=== PATIENT | male | born 1985 | race Two or more races ===

== ENCOUNTER 2022-03-08 12:08 | Emergency (ER) | payer MEDICAID ==
[~2022-03-08] VITALS: Ht 165.1 cm; Wt 70.5 kg
[2022-03-08 13:11] VITALS: BP 118/77
[2022-03-08] MEDS ORDERED: BACL10TA PO (13:40)
[2022-03-08] MEDS ORDERED: IBUP800T27 PO (13:40)
[2022-03-08] MEDS ORDERED: HYDROcodone-ACET 5/325MG TAB PO ONE (13:45)
== END 2022-03-08 13:54 | disposition home or self-care (01) ==
LOC: ER 12:14
DX: S43.101A Unspecified dislocation of right acromioclavicular joint, initial encounter (principal); V18.0XXA Pedal cycle driver injured in noncollision transport accident in nontraffic accident, initial encounter; Y93.89 Activity, other specified; Y92.89 Other specified places as the place of occurrence of the external cause; Y99.8 Other external cause status
CPT/HCPCS: 73030